=== PATIENT | male | born 1980 | race Hispanic/Latino ===

== ENCOUNTER 2018-08-03 15:43 | Observation (INO) | payer OTHER ==
[2018-08-03] MEDS ORDERED: chlordiazePOXIDE HCl 25 MG CAP PO PRN (17:00)
[2018-08-03 18:08] LABS: Urine Appearance CLEAR; Urine Bilirubin NEGATIVE (NEG); Urine Blood NEGATIVE (NEG); Urine Color YELLOW; Urine Glucose NEGATIVE (NEG); Urine Protein NEGATIVE (NEG); Urine Specific Gravity 1.015 (1.005-1.030); Urine Urobilinogen 0.2 mg/dL (0.2-1.0); Urine pH 6.5 (5.0-7.0)
[2018-08-03 18:26] LABS: Albumin 4.1 g/dL (3.4-5.0); Bilirubin Total 0.5 mg/dL (0.2-1.0); Potassium 3.7 mmol/L (3.5-5.1); Protein, Total 7.6 g/dL (6.4-8.2)
[2018-08-03 18:30] LABS: Urine Microscopic Reflex NO UMIC
[2018-08-03 18:58] LABS: Absolute Monocytes 0.6 K/uL (0.1-1.3); Absolute Neutrophil 6.7 K/uL (1.8-8.0); Basophils % 0.6 % (0-1.3); Hematocrit 46.4 % (39.6-49.0); Lymphocytes % 21.2 % (15.3-44.8); MCH 30.2 pg (27.0-35.0); MCV 85.7 fL (80-100); MPV 10.3 fL (7.6-11.3); Monocytes % 6.5 % (3.3-12.3); RBC Red Blood Cell Count 5.41 M/uL (4.33-5.43)
--- NOTE | 2018-08-03 20:53 | RAD REPORT ---
EXAM DESCRIPTION: Sabrina Aldrich (2 Views)08/03/2018 7:55 pm CLINICAL HISTORY: sob COMPARISON: None FINDINGS: The lungs appear clear of acute infiltrate. The heart is normal size IMPRESSION: No acute abnormalities displayed
[2018-08-04] MEDS ORDERED: PNEUMOCOCCAL VACCINE 0.5 ML IMVAC ONE (09:00)
[2018-08-04] MEDS ORDERED: INFLUENZA VACCINE (for 3y+) 0.5 ML DOSE IMVAC ONE (09:00)
[2018-08-04 12:20] LABS: T4,Total 9.1 ug/dL (4.5-12.1)
--- NOTE | 2018-08-04 14:16 | ECHO ---
HEIGHT: 5 ft 5 in WEIGHT: 216 lb 0 oz DATE OF STUDY: 08/04/[address]: Tulio Kent MD 2-DIMENSIONAL: YES M.MODE: YES DOPPLER: YES COLOR FLOW: YES TDS: NO PORTABLE: NO DEFINITY: NO BUBBLE STUDY: NO DIAGNOSIS: DYSPNEA CARDIAC HISTORY: CATHERIZATION: NO SURGERY: NO PROSTHETIC VALVE: NO PACEMAKER: NO MEASUREMENTS (cm) DIASTOLIC (NORMALS) SYSTOLIC (NORMALS) IVSd 0.8 (0.6-1.2) LA Diam 3.4 (1.9-4.0) LVEF 63% LVIDd 4.1 (3.5-5.7) LVIDs 2.7 (2.0-3.5) %FS 34% LVPWd 1.0 (0.6-1.2) Ao Diam 2.9 (2.0-3.7) 2 DIMENSIONAL ASSESSMENT: RIGHT ATRIUM: NORMAL LEFT ATRIUM: NORMAL RIGHT VENTRICLE: NORMAL LEFT VENTRICLE: NORMAL TRICUSPID VALVE: NORMAL MITRAL VALVE: NORMAL PULMONIC VALVE: NORMAL AORTIC VALVE: NORMAL PERICARDIAL EFFUSION: NONE AORTIC ROOT: NORMAL LEFT VENTRICULAR WALL MOTION: NORMAL DOPPLER/COLOR FLOW: MILD TRICUSPID REGURGITATION. NORMAL RIGHT VENTRICULAR SYSTOLIC PRESSURE. COMMENTS: NORMAL 2D ECHOCARDIOGRAM. MILD TRICUSPID REGURGITATION. TECHNOLOGIST: Felix ISAAC
--- NOTE | 2018-08-05 00:24 | HP ---
Date of Admission: 08/03/2018 Chief Complaint: Dyspnea, anxiety. History Of Present Illness: A 38-year-old male was seen in the emergency room for multiple symptoms. He was told to have anxiety. He came for followup. He was examined in the office. He did not hav e any physical findings. However, returned on the day of admission with dyspnea. It was not clear a s to what was happening to the patient. In view of new symptoms, he was admitted for observation. T he patient denied any history of fever, chills, rigors. Past Medical History: He is known to have history of fatty liver. He also has history of chronic al cohol abuse. There is no history of coronary artery disease. Family History: Positive for diabetes, hypertension. Personal History: Nonsmoker. Allergies: NO KNOWN ALLERGIES. Review of Systems: The patient denied any fever, chills, rigors. Physical Examination: General: Revealed 38-year-old male, obese. Vital Signs: Normal. HEENT: Negative. Neck: Supple. JVD negative. Chest: Clear. Heart: Regular. Abdomen: Soft, nontender. Extremities: No edema. Laboratory: Chem profile, mild elevation in liver enzymes and TSH of 11. T3, T4 normal. D-dimer no rmal. Assessment: 1.Dyspnea. 2.No evidence of acute abdomen. 3.Elevated liver enzymes compatible with chronic alcohol abuse and fatty liver. 4.Hypothyroidism, on smaller dose of thyroid. Plan: The patient has normal BNP and normal D-dimer. However, echo has been done to see if there is some explanation for his symptoms. His thyroid dose is 100 instead of 200. He will have repeat TSH in 3 weeks and see what the change is and readjustment will be made. Pending the echocardiogram, he will be given Librium to counteract any alcohol withdrawal symptoms. [facility]/ERIC Voice ID: [id number]
== END 2018-08-04 17:07 | disposition home or self-care (01) ==
LOC: 2ND 16:19
PROVIDERS: ADMIT Internal Medicine; ATTEND Internal Medicine
DX: R06.00 Dyspnea, unspecified (principal); E03.9 Hypothyroidism, unspecified; E66.9 Obesity, unspecified; Z68.35 Body mass index [BMI] 35.0-35.9, adult; F10.10 Alcohol abuse, uncomplicated; K70.0 Alcoholic fatty liver; Z23 Encounter for immunization
CPT/HCPCS: 36415; 71046; 80053; 81003; 83880; 84436; 84439; 84443; 84484; 85025; 85379; 93306; G0008; G0378; Q2035

== ENCOUNTER 2021-08-09 06:24 | Day surgery (SDC) | payer BC ==
--- NOTE | 2021-08-08 15:37 | RAD REPORT ---
EXAM DESCRIPTION: RAD - Chest Pa And Lat (2 Views) - 08/08/2021 3:30 pm CLINICAL HISTORY: Pre Op Chest pain. COMPARISON: Chest Pa And Lat (2 Views) dated 08/03/2018 FINDINGS: The lungs are clear. The heart is normal in size. No displaced fractures. IMPRESSION: No acute or concerning finding suspected.
[2021-08-08 15:57] LABS: Absolute Lymphocytes (CBC) 1.6 K/uL (0.7-4.9); Basophils % 0.5 % (0-1.3); Hematocrit 46.4 % (39.6-49.0); RBC Red Blood Cell Count 5.43 M/uL (4.33-5.43)
[2021-08-08 16:02] LABS: Potassium 3.9 mmol/L (3.5-5.1)
[2021-08-09] MEDS ORDERED: CEFAZOLIN/NS 1gm 1 GM/50 ML BAG ONE (07:29)
[2021-08-09] MEDS ORDERED: NA CHLORIDE 0.9% 1,000 ML ONE (07:29)
[2021-08-09] MEDS ORDERED: ROCURONIUM 50 MG/5 ML VIAL IV ONE (07:39)
[2021-08-09] MEDS ORDERED: propofoL 200 MG/20 ML VIAL IV ONE (07:39)
[2021-08-09] MEDS ORDERED: FENTANYL CITR 100 MCG/2 ML ONE ×2 (07:39→08:21)
[2021-08-09] MEDS ORDERED: MIDAZOLAM HCL 2 MG/2 ML INJ ONE (07:39)
[2021-08-09] MEDS ORDERED: LIDOCAINE 1% MPF 5 ML VIAL ONE (07:39)
[2021-08-09] MEDS ORDERED: METHYLENE BLUE 0.5% 10 ML AMP ONE (07:40)
[2021-08-09] MEDS ORDERED: BUPIVACAINE 0.5% PF 10 ML VIAL ONE (07:41)
[2021-08-09] MEDS ORDERED: Mastisol Adhesive Liq ONE (08:19)
[2021-08-09] MEDS ORDERED: KETOROLAC 30 MG/ML INJ ONE (08:29)
[2021-08-09] MEDS ORDERED: GLYCOPYRROLATE 0.2 MG/ML SYR ONE ×6 (08:29→08:31)
[2021-08-09] MEDS ORDERED: NEOSTIGMINE 1 MG/ML -5 ML ONE (08:29)
[2021-08-09] MEDS ORDERED: ONDANSETRON 4 MG/2 ML VIAL ONE (08:29)
[2021-08-09 09:08] VITALS: BP 121/71; TEMP 97.6; O2SAT 95
[2021-08-09] MEDS ORDERED: HYDROCODONE/APAP 7.5/325 MG TAB ONE (09:55)
--- NOTE | 2021-08-09 20:07 | OP ---
Date of Procedure: 08/09/2021 Surgeon: Sean Rincon MD Die Cast Technician: None. Preoperative Diagnosis: Infected pilonidal cyst. Postoperative Diagnosis: Left perirectal abscess. Procedure Performed: Incision, drainage, and debridement of left perirectal abscess. Estimated Blood Loss: Minimal. Specimen: Pus. Findings: As above. Anesthesia: General. Complications: None. Disposition: The patient tolerated the procedure in stable condition and taken to Recovery in good g eneral condition. Procedure In Detail: The patient was brought to the OR, placed in supine position. General anesthes ia was begun. The patient was placed in the prone position, prepped and draped in the usual sterile fashion. Marcaine 0.5% was infiltrated. On examination in the prone position, the patient was found to have the infection close to the anus, but not really next to it, and it was more on the left infe rior buttock aspect and the posterior close to the posterior midline. So Marcaine 0.5% was infiltrat ed in this area with approximately 4 x 4 cm and approximately a 3-cm incision was made, and deep to t he subcutaneous tissue, pus under pressure was evacuated. Loculations were broken up. Cultures were done. Wound was irrigated. Bleeding controlled with cautery. Necrotic tissue was debrided and the n a wet-to-dry normal saline dressing change applied. The patient was awakened and taken to Recovery in good general condition. Discharge Note: The patient will go to day surgery and home when stable. Disposition: Home. Condition: Stable. Discharge Instructions: Resume home medications and diet. Activity as tolerated. No heavy lifting. Remove outer dressing at a.m. shower. Keep wound clean and dry. Follow up in my office in 2 weeks , call for appointment. Tylenol No. 3 one tablet p.o. q.4 p.r.n. pain; Cipro 500 mg p.o. q.12. Wet- to-dry normal saline dressing changes daily. Home health has been arranged by my office. [place]/ERIC Voice ID: [id number] Report ID: [id number]
--- NOTE | 2021-08-10 11:47 | EKG ---
Test Date: 2021-08-08 Test Time: 14:15:44 Flux Core Welder: DIAMOND MEASUREMENT RESULTS: Intervals: Rate: 102 NH: 146 QRSD: 84 QT: 338 QTc: 440 [place]: P: 65 NH: 146 QRS: 42 T: 12 INTERPRETIVE STATEMENTS: Sinus tachycardia Otherwise normal ECG No previous ECG available for comparison Electronically Signed On 08-10-21 11:44:56 CDT by Tommy Hodge
== END 2021-08-09 10:00 | disposition home or self-care (01) ==
LOC: OR 06:24
PROVIDERS: ATTEND Surgery
PROC: 0D9P0ZX Drainage of Rectum, Open Approach, Diagnostic (ICD-10-PCS; principal; 2021-08-09 07:30)
DX: K61.1 Rectal abscess (principal); Z20.822 Contact with and (suspected) exposure to COVID-19
CPT/HCPCS: 93005; 87070; 85025; 80048; 36415; 87205 ×2; 82947 ×2; 87075; 87077; 87186; 71046; 46040; U0003; J2704; J2250; J3010 ×2; J2710; J0690; J7030; J2405